=== PATIENT | male | born 1955 | race Caucasian/White ===

== ENCOUNTER 2017-04-24 14:15 | Emergency (ER) | payer OTHER ==
[~2017-04-24] VITALS: Ht 175.3 cm; Wt 72.6 kg
[2017-04-24] MEDS ORDERED: COZAAR100 MG (15:05)
== END 2017-04-24 17:55 | disposition home or self-care (01) ==
LOC: ER 14:15
DX: M54.5 Low back pain (principal)

== ENCOUNTER 2017-04-25 19:05 | Emergency (ER) | payer OTHER ==
[~2017-04-25] VITALS: Ht 175.3 cm; Wt 76.2 kg
[~2017-04-25 19:05] MED LIST: COZAAR100 MG
== END 2017-04-25 23:29 | disposition home or self-care (01) ==
LOC: ER 19:05
DX: M54.31 Sciatica, right side (principal)

== ENCOUNTER 2017-09-01 15:31 | Emergency (ER) | payer OTHER ==
[~2017-09-01] VITALS: Ht 175.3 cm; Wt 72.6 kg
== END 2017-09-01 22:36 | disposition home or self-care (01) ==
LOC: ER 15:31
DX: K42.9 Umbilical hernia without obstruction or gangrene (principal)

== ENCOUNTER 2017-10-30 08:44 | Day surgery (SDC) | payer OTHER | END 2017-10-30 15:25 | disposition home or self-care (01) | LOC: CIR.AMB 08:44 | DX: K42.9 Umbilical hernia without obstruction or gangrene (principal) ==

== ENCOUNTER 2021-10-22 08:27 | Outpatient (CLI) | payer OTHER | END 2021-10-22 08:31 | disposition home or self-care (01) | LOC: MRI 08:27 | PROVIDERS: ATTEND Internal Medicine | DX: G30.0 Alzheimer's disease with early onset (principal); G20 Parkinson's disease; N40.0 Benign prostatic hyperplasia without lower urinary tract symptoms | CPT/HCPCS: 70552; 72195; 74181 ==

== ENCOUNTER 2022-07-18 09:44 | Outpatient (CLI) | payer OTHER | END 2022-07-18 09:48 | disposition home or self-care (01) | LOC: RAD 09:44 | PROVIDERS: ATTEND Urology | DX: N40.1 Benign prostatic hyperplasia with lower urinary tract symptoms (principal); N20.0 Calculus of kidney; N28.1 Cyst of kidney, acquired ==